=== PATIENT | male | born 1965 | race Caucasian/White ===

== ENCOUNTER 2020-01-29 06:03 | Emergency (ER) | payer OTHER ==
[~2020-01-29] VITALS: Ht 180.3 cm; Wt 81.6 kg
[2020-01-29] MEDS ORDERED: ACETAMINOPHEN500 M2 (06:12)
== END 2020-01-29 11:26 | disposition left against medical advice (07) ==
LOC: ER 06:03
DX: U07.1 COVID-19 (principal)

== ENCOUNTER 2020-12-21 20:34 | Emergency (ER) | payer OTHER ==
[~2020-12-21] VITALS: Ht 180.3 cm; Wt 74.8 kg
[~2020-12-21 20:34] MED LIST: ACETAMINOPHEN500 M2
[2020-12-21] MEDS ORDERED: CHLORPROMAZINE25 MG PO (23:50)
== END 2020-12-21 23:55 | disposition home or self-care (01) ==
LOC: ER 20:34
DX: R06.6 Hiccough (principal)

== ENCOUNTER 2021-09-30 22:17 | Emergency (ER) | payer OTHER ==
[~2021-09-30] VITALS: Ht 180.3 cm; Wt 77.1 kg
[~2021-09-30 22:17] MED LIST changes: +CHLORPROMAZINE25 MG PO
== END 2021-10-01 00:13 | disposition home or self-care (01) ==
LOC: ER 22:17
DX: S61.211A Laceration without foreign body of left index finger without damage to nail, initial encounter (principal); W26.0XXA Contact with knife, initial encounter; Y93.89 Activity, other specified; Y92.018 Other place in single-family (private) house as the place of occurrence of the external cause; Y99.9 Unspecified external cause status

== ENCOUNTER → 2021-10-02 | Emergency (ER) | payer OTHER ==
[~2021-10-02] VITALS: Ht 172.7 cm; Wt 79.4 kg
== END | disposition left against medical advice (07) ==
LOC: ER 10:25
DX: Z53.21 Procedure and treatment not carried out due to patient leaving prior to being seen by health care provider (principal)